=== PATIENT | male | born 1945 | race Caucasian/White ===

== ENCOUNTER 2019-08-23 01:20 | Emergency (ER) | payer MEDICARE, BC ==
[~2019-08-23] VITALS: Ht 177.8 cm; Wt 78.0 kg
[2019-08-23] MEDS ORDERED: XYOSTED100 MG/0.5 SQ (01:42)
[2019-08-23] MEDS ORDERED: BENICAR5 MG ORAL (01:42)
[2019-08-23] MEDS ORDERED: MULTIVITAMINS1 EAC2 ORAL (01:42)
[2019-08-23] MEDS ORDERED: REPATHA SY140 MG/1 M SQ (01:42)
[2019-08-23] MEDS ORDERED: SYNTHROID50 MCG ORAL (01:42)
[2019-08-23] MEDS ORDERED: FISH OIL CAP1000 MG ORAL (01:42)
[2019-08-23] MEDS ORDERED: RANEXA1000 MG ORAL (01:42)
[2019-08-23] MEDS ORDERED: COREG25 MG ORAL (01:42)
[2019-08-23] MEDS ORDERED: ASPIRIN-LOW81 MG ORAL (01:42)
[2019-08-23 01:53] VITALS: BP 92/63
--- NOTE | 2019-08-23 01:55 | NUR ---
ER Nurse Note: Pt walked in c/o pain in the lower back. Pt denies trauma, recent surgery; stated pain occured a few days ago and has gotten worse. Pt also stated abd pain, bowel sounds heard in all quads. Denies ingestion anything abnormal. Urine sample provided. ERMD at pt side; will continue to montior.
[2019-08-23] MEDS ORDERED: Omnipaque-300 100ml vial INJ PRN (02:00)
--- NOTE | 2019-08-23 02:03 | Emergency Room Report ---
History of Present Illness General Chief Complaint: Pain Source: Patient Present Illness HPI Disclaimer: Please note that this report is being documented using [employer] technology. This can lead to erroneous entry secondary to incorrect interpretation by the dictating instrument. HPI: 73-year-old male presents for evaluation of abdominal pain and back pain. Symptoms began this afternoon. He states he was lifting some furniture moving around when he noticed a pain in his mid lower back. It does not radiate, is aching and generalized in nature. Denies any lower extremity weakness, paresthesias, urinary retention, fecal incontinence. Gait is normal. He also noted a vague and diffuse abdominal pain around the same time. Denies vomiting or diarrhea. He has a history of IBS and colitis in the past though he states that this is somewhat different. Denies any dysuria, hematuria. Pain does not radiate to the back. PMH: IBS, colitis PSH: Carpal tunnel release Allergies: Penicillin Social Hx: Denies drug or alcohol use Allergies: Coded Allergies: PENICILLINS (Verified Allergy, Unknown, 04/09/09) Nursing Documentation-PMH Hx Hypertension: Yes Review of Systems All Other Systems: negative except mentioned in HPI Physical Exam Vital Signs Date Time Temp Pulse Resp B/P (MAP) Pulse Ox O2 Delivery O2 Flow Rate FiO2 08/23/19 01:33 98.1 86 18 92/63 (73) 99 Room Air General: Awake and alert, no acute distress HEENT: NC/AT. EOMI. Cardiovascular: RRR. S1 and S2 normal. No murmur appreciated Resp: Normal work of breathing. No cough, wheezing or crackles appreciated Abdomen: Abdomen is soft, nondistended. Lower pelvic tenderness and tenderness in the right lower quadrant with positive rebound. Rovsing is negative, obturator and psoas signs are negative. Negative Cartwright's. No tenderness in the upper quadrants. Skin: Intact. No abrasions, laceration or rash over the exposed skin MSK: Normal tone and bulk. Moving all extremities. No obvious deformity. Neuro: Awake and alert. Mentating appropriately. Back/Spine: No midline tenderness in the cervical, thoracic or lumbosacral spine. No step-offs and no deformities palpable. No paraspinal tenderness. Medical Decision Making Diagnostic Impression: Primary Impression: Abdominal pain Additional Impressions: CKD (chronic kidney disease) Spondylosis ER Course 73-year-old male presents for evaluation of abdominal pain and back pain beginning earlier today. He arrives with stable vital signs and overall well- appearing. I cannot reproduce any tenderness over the vertebrae or paraspinal regions of the mid or lower back where the patient's pain is with her he does have some rebound tenderness in his abdomen. Differential includes was not limited to IBS, diverticulitis, appendicitis, obstruction, musculoskeletal injury, UTI, pyelonephritis. Will obtain labs and sent for CT scan of the abdomen with IV contrast to rule out appendicitis, abdominal aortic aneurysm or other intra-abdominal pathology. Low suspicion for vertebral injury as the patient has no reproducible point tenderness over this back and there is no evidence of trauma. Spine will be visualized on CT scan of the abdomen and pelvis. Laboratory Tests Test 08/23/19 01:38 08/23/19 02:05 Urine Color Ella Urine Appearance Clear Urine pH 5 (4.5-8.0) Urine Specific [place] 1.030 (1.005-1.035) Urine Protein 3+ (NEGATIVE) H Urine Glucose (UA) Negative (NEGATIVE) Urine Ketones 1+ (NEGATIVE) H Urine Blood 1+ (NEGATIVE) H Urine Nitrite Negative (NEGATIVE) Urine Bilirubin 1+ (NEGATIVE) H Urine Ictotest Negative (NEGATIVE) Urine Urobilinogen 1 MG/DL (0.0-1.0) H Urine Leukocyte Esterase 1+ (NEGATIVE) H Urine RBC 0-2 /HPF (0 - 0) H Urine WBC 0-2 /HPF (0 - 0) Urine Squamous Epithelial Cells Few /LPF (NONE/OCC) Urine Bacteria Few /HPF (NONE) White Blood Count 17.3 K/UL (4.8-10.8) H Red Blood Count 5.80 M/UL (4.70-6.10) Hemoglobin 17.8 G/DL (14.2-18.0) Hematocrit 53.6 % (42.0-52.0) H Mean Corpuscular Volume 93 FL (80-99) Mean Corpuscular Hemoglobin 30.7 PG (27.0-31.0) Mean Corpuscular Hemoglobin Concent 33.2 G/DL (32.0-36.0) Red Cell Distribution Width 12.2 % (11.6-14.8) Platelet Count 210 K/UL (150-450) Mean Platelet Volume 8.4 FL (6.5-10.1) Neutrophils (%) (Auto) 73.8 % (45.0-75.0) Lymphocytes (%) (Auto) 14.6 % (20.0-45.0) L Monocytes (%) (Auto) 9.3 % (1.0-10.0) Eosinophils (%) (Auto) 1.7 % (0.0-3.0) Basophils (%) (Auto) 0.5 % (0.0-2.0) Sodium Level 141 MMOL/L (136-145) Potassium Level 3.6 MMOL/L (3.5-5.1) Chloride Level 101 MMOL/L (98-107) Carbon Dioxide Level 33 MMOL/L (21-32) H Anion Gap 7 mmol/L (5-15) Blood Urea Nitrogen 26 mg/dL (7-18) H Creatinine 1.6 MG/DL (0.55-1.30) H Estimate Glomerular Filtration Rate mL/min (>60) Glucose Level 117 MG/DL (74-106) H Calcium Level 9.6 MG/DL (8.5-10.1) Total Bilirubin 0.9 MG/DL (0.2-1.0) Aspartate Amino Transferase (AST) 27 U/L (15-37) Alanine Aminotransferase (ALT) 40 U/L (12-78) Alkaline Phosphatase 62 U/L (46-116) Total Protein 7.6 G/DL (6.4-8.2) Albumin 3.8 G/DL (3.4-5.0) Globulin 3.8 g/dL Albumin/Globulin Ratio 1.0 (1.0-2.7) Lipase 91 U/L (73-393) CT/MRI/US Diagnostic Results CT/MRI/US Diagnostic Results : Impression Preliminary Findings Only See Final Report For Complete Findings CT ABDOMEN & PELVIS With Contrast: COMPARISON: None IMPRESSION: Much of the small bowel is fluid-filled with segmental dilation measuring up to 3.7 cm. Relatively gradual transition is present with distal small bowel loops generally more decompressed. Additionally, liquid stool is present in the proximal colon without evidence for colitis. In total, findings are nonspecific and could reflect partial small bowel obstruction or enteritis. Correlate clinically and followup as indicated. No small bowel wall thickening, pneumatosis, free air, or portal venous gas. Small free fluid and mild diffuse soft tissue edema. Normal appendix. INCIDENTAL FINDINGS: Infrahilar opacities likely reflect atelectasis/scarring. A renal cyst. Atherosclerosis without abdominal aortic aneurysm. Diverticulosis. Prostatomegaly. Spondylosis and changes of diffuse idiopathic skeletal hyperostosis. Radiologist: Yousuf Paredes M.D. Study ready at 03:34 and initial results transmitted at 04:29 Clear Time Type Notes 08/23/19 04:37 Verify Receipt Verified receipt with Dr. Riggs on 08/23 04:38 ( -08:00) Reevaluation Time: 04:44 Last Vital Signs Date Time Temp Pulse Resp B/P (MAP) Pulse Ox O2 Delivery O2 Flow Rate FiO2 08/23/19 01:53 98.1 78 18 92/63 99 Room Air Status: improved Reevaluation Impression Labs show slight elevation in white count but no shift. Otherwise show baseline chronic kidney disease with a creatinine of 1.6 are unchanged from his previous hospitalization here in 2008. CT scan of the abdomen shows some dilated fluid-filled loops of small bowel in other concerning for partial small bowel obstruction or enteritis. The patient is well-appearing and tolerating oral hydration at this time. 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 He is requesting copies of his labs imaging and reports to take to his GI doctor early this morning. He states he be seen right away. Overall he is well- appearing with stable vital signs and currently his abdomen is soft and do not believe he requires emergent surgery at this time. We discussed the risks of leaving the hospital and the patient understands and states that he would return with any sudden changes in his symptoms. He appears reasonable and I believe is stable for outpatient follow-up as this may be a case of enteritis. He was given his labs, imaging and reports. Patient was discharged to follow- up with his GI specialist and then PMD. Disposition: HOME, SELF-CARE Condition: Stable Scripts Ondansetron Odt* (ZOFRAN ODT*) 4 Mg Tab.rapdis 4 MG BC EVERY 6 HOURS PRN for Nausea & Vomiting, #20 TAB 0 Refills Prov: Damien Riggs MD 08/23/19 Referrals: NON PHYSICIAN (PCP) Damien Riggs MD Aug 23, 2019 02:03
[2019-08-23 02:23] LABS: BASOPHILS % (AUTO) 0.5 % (0.0-2.0); EOSINOPHILS % (AUTO) 1.7 % (0.0-3.0); HEMATOCRIT 53.6 % (42.0-52.0); HEMOGLOBIN 17.8 G/DL (14.2-18.0); LYMPHOCYTES % (AUTO) 14.6 % (20.0-45.0); MEAN CORPUSCULAR VOLUME 93 FL (80-99); MONOCYTES % (AUTO) 9.3 % (1.0-10.0); NEUTROPHILS % (AUTO) 73.8 % (45.0-75.0); PLATELET COUNT 210 K/UL (150-450); RED CELL DISTRIBUTION WIDTH 12.2 % (11.6-14.8); WHITE BLOOD COUNT 17.3 K/UL (4.8-10.8)
[2019-08-23 02:30] LABS: APPEARANCE,URINE CLEAR; BILIRUBIN, URINE 1+ (NEGATIVE); GLUCOSE, URINE (UA) NEGATIVE (NEGATIVE); KETONES,URINE 1+ (NEGATIVE); LEUKOCYTE ESTERASE ,URINE 1+ (NEGATIVE); PH,URINE 5 (4.5-8.0); PROTEIN,URINE 3+ (NEGATIVE); UROBILINOGEN,URINE 1 MG/DL (0.0-1.0)
[2019-08-23 02:34] LABS: ANION GAP 7 mmol/L (5-15); BLOOD UREA NITROGEN 26 mg/dL (7-18); CALCIUM 9.6 MG/DL (8.5-10.1); CARBON DIOXIDE 33 MMOL/L (21-32); CHLORIDE 101 MMOL/L (98-107); CREATININE 1.6 MG/DL (0.55-1.30); POTASSIUM 3.6 MMOL/L (3.5-5.1); SODIUM 141 MMOL/L (136-145)
[2019-08-23 02:35] LABS: COLOR,URINE AMBER; NITRITE,URINE NEGATIVE (NEGATIVE)
[2019-08-23 02:38] LABS: ALANINE AMINOTRANSFERASE 40 U/L (12-78); ALBUMIN 3.8 G/DL (3.4-5.0); ALKALINE PHOSPHATASE 62 U/L (46-116); ASPARTATE AMINO TRANSFERASE 27 U/L (15-37); BILIRUBIN,TOTAL 0.9 MG/DL (0.2-1.0)
[2019-08-23 04:15] VITALS: BP 140/79
--- NOTE | 2019-08-23 04:26 | NUR ---
ER Nurse Note: Pt awake, no signs of distress. All orders completed per ERMD orders. Pt calm. Awaiting further orders. Will continue to montior.
--- NOTE | 2019-08-23 04:30 | Diagnostic Imaging Report ---
Indication: Abdominal pain Technique: Continuous helical transaxial imaging of the abdomen and pelvis was obtained from the lung bases to the pubic symphysis during intravenous contrast administration. Coronal 2-D reformats were also obtained. Study obtained in a Siemens sensation [address] Automatic Exposure Control was utilized. Total Dose length Product (DLP): [address] Dose Index Volume (CTDIvol): 17.3 mGy Comparison: None Findings: Distended loops of small bowel are demonstrated throughout the abdomen. Bowel loops are fluid-filled and there is a general gradual transition to more decompressed appearing distal ileum without abrupt transition identified. The findings are nonspecific and may be due to generalized gastroenteritis. Partial bowel obstruction is not excludable. There is also liquefied stool in the colon suggestive of diarrhea. Correlate clinically. There is no abscess or free fluid. The appendix is normal. Bladder is nondistended. Mild calcification of aorta demonstrated. There is artifact in the upper abdomen limiting evaluation. Basilar linear densities likely represent atelectasis. No gross abnormalities of the gallbladder, liver, pancreas, spleen, kidneys identified. Diverticula demonstrated within the colon. No definite diverticulitis appreciated. IMPRESSION: Suspected gastroenteritis. Partial bowel obstruction not excluded. Correlate clinically. Consider follow-up. Limited evaluation due to artifacts. Other incidental findings as above [facility] has communicated the preliminary results to the Emergency Department. Their findings are largely concordant with this report. The CT scanner at [facility] is accredited by the [employer] and the scans are performed using dose optimization techniques as appropriate to a performed exam including Automatic Exposure control.
[2019-08-23] MEDS ORDERED: ONDANSETRON ODT4 MG BC (04:51)
[2019-08-23] MEDS ORDERED: HYDROcodone/Acetamin 7.5/325 tab ORAL ONE (05:00)
[2019-08-23 05:05] VITALS: BP 140/79
--- NOTE | 2019-08-23 05:05 | NUR ---
ER Nurse Note: Pt seen, treated, medically cleared to be discharged per ERMD. Discharge instructions given with repeat verbalization by pt. Encouraged pt to follow up with primary care physican within one week. Pt is aox4, on room air, with stable vital signs. ID band and IV site removed without complications; site clean and bandaged. Pt is able to ambulate with steady gait; left with all belongings.
== END 2019-08-23 05:05 | disposition home or self-care (01) ==
LOC: EMR 01:55
DX: R10.9 Unspecified abdominal pain (principal); N18.9 Chronic kidney disease, unspecified; M47.9 Spondylosis, unspecified; I10 Essential (primary) hypertension; Z88.0 Allergy status to penicillin
CPT/HCPCS: 36415; 74177; 80053; 81003; 83690; 85025; 96360; 99284; Q9967